=== PATIENT | male | born 1985 | race Caucasian/White ===

== ENCOUNTER 2016-07-01 19:36 | Emergency (ER) | payer OTHER ==
[~2016-07-01] VITALS: Ht 175.3 cm; Wt 65.4 kg
[~2016-07-01 19:36] MED LIST: MORGIDOX100 MG PO; PREDNISONE20 MG PO
[2016-07-01 22:42] LABS: HEMATOCRIT 40.5 % (38.0-50.0); MCH 29.3 PG (29.0-34.0); MCHC 34.8 G/DL (30.0-36.0); MCV 84.2 FL (86-99); MEAN PLAT.VOLUME 10.1 uM^3 (9.0-12.4); PLATELET COUNT 270 K/uL (156-360); RBC DIS.WIDTH-SD 36.3 % (39-53); RED BLOOD COUNT 4.81 M/uL (4.00-5.50); WHITE BLOOD COUNT 12.5 K/uL (4.1-10.2)
[2016-07-01 22:48] LABS: CHLORIDE 105 mEq/L (99-109); SODIUM 138 mEq/L (136-147)
[2016-07-01 22:50] LABS: GLUCOSE 89 mg/dL (70-99)
[2016-07-01 22:51] LABS: ANION GAP 12 MEQ/L (2-14)
[2016-07-01 22:54] LABS: GFR ESTIMATE (CALCULATED) > 59 mL/min/
[2016-07-01 22:55] LABS: UREA NITROGEN (BUN) 15 mg/dL (9-23)
[2016-07-02] MEDS ORDERED: CLEOCIN300 MG PO (00:21)
[2016-07-02 00:39] VITALS: BP 146/74
== END 2016-07-02 00:43 | disposition home or self-care (01) ==
LOC: EME 19:36
PROVIDERS: Emergency Medicine
DX: L03.113 Cellulitis of right upper limb (principal); F17.200 Nicotine dependence, unspecified, uncomplicated
CPT/HCPCS: 73130; 80048; 85027; 99281; 99284